=== PATIENT | female | born 2000 | race Caucasian/White ===

== ENCOUNTER 2023-06-12 10:48 | Inpatient (IN) | payer BC ==
[2023-06-12] MEDS ORDERED: Ondansetron 4 MG/2 ML SDV IVPUSH PRN (10:58)
[2023-06-12] MEDS ORDERED: Acetaminophen 325 MG Tab PO PRN (10:58)
[2023-06-12] MEDS ORDERED: Lidocaine 1% 50 ML MDV INJECT PRN (10:58)
[2023-06-12] MEDS ORDERED: Calcium Carbonate 500 MG Tab.Chew PO PRN (10:58)
[2023-06-12] MEDS ORDERED: Nalbuphine 10 MG/0.5 ML Syringe IVPUSH PRN (10:58)
[2023-06-12] MEDS ORDERED: Lactated Ringers 1,000 ML IV SCH (11:00)
[2023-06-12] MEDS ORDERED: Oxytocin/Lactated Ringers 10 UNIT/1,000 ML BAG IV SCH ×2 (11:00)
[2023-06-12 11:30] LABS: HEMATOCRIT 37.7 % (34.1-44.9); HEMOGLOBIN 12.7 gm/dl (11.2-15.7); MEAN CORPUSCULAR HEMOGLOBIN 32.5 pg (25.6-32.2); MEAN CORPUSCULAR HGB CONC 33.7 g/dl (32.2-35.5); MEAN CORPUSCULAR VOLUME 96.4 fl (79.4-94.8); MEAN PLATELET VOLUME 10.3 fl (9.4-12.3); PLATELET COUNT,PLT 299 K/mm3 (182-369); RED BLOOD CELL COUNT 3.91 M/mm3 (3.98-5.22); WHITE BLOOD CELL COUNT,WBC 11.38 K/mm3 (3.98-10.04)
[2023-06-12] MEDS: Misoprostol 25 MCG (1/4 of 100 MCG) Tab VAG PRN ×3 (11:35→20:33)
[2023-06-12] MEDS ORDERED: Bupivacaine/fentaNYL/NS 100 ML Bag EPIDUR PRN (20:05)
[2023-06-12] MEDS ORDERED: fentaNYL 100 MCG/2 ML SDV EPIDUR PRN (20:05)
[2023-06-12] MEDS ORDERED: ePHEDrine 50 MG/ML SDV IVPUSH PRN (20:05)
[2023-06-12] MEDS ORDERED: diphenhydrAMINE 50 MG/ML SDV IVPUSH PRN (20:05)
[2023-06-13] MEDS ORDERED: ceFAZolin 2 GM in Sodium Chloride 0.9% 50 ML IV ONE (09:39)
[2023-06-13] MEDS ORDERED: Citric Acid/Sodium Citrate Solution 30 ML Cup PO ONE (09:39)
[2023-06-13] MEDS ORDERED: Metoclopramide 10 MG/2 ML SDV IVPUSH ONE (09:39)
[2023-06-13] MEDS ORDERED: Azithromycin 500 MG in Sodium Chloride 0.9% 250 ML IV ONE (09:42)
[2023-06-13] MEDS ORDERED: Morphine PF 10 MG/10 ML SDV ONE (09:51)
[2023-06-13] MEDS ORDERED: fentaNYL 100 MCG/2 ML SDV ONE (09:51)
[2023-06-13] MEDS ORDERED: ceFAZolin 2 GM Vial ONE (10:07)
[2023-06-13] MEDS ORDERED: Oxytocin 10 Units/1 ML SDV ONE (10:33)
[2023-06-13] MEDS ORDERED: fentaNYL 100 MCG/2 ML SDV IVPUSH PRN (10:35)
[2023-06-13] MEDS ORDERED: Ondansetron 4 MG/2 ML SDV IVPUSH PRN (10:35)
[2023-06-13] MEDS ORDERED: diphenhydrAMINE 50 MG/ML SDV IVPUSH PRN ×2 (10:35→11:55)
[2023-06-13] MEDS ORDERED: Ketorolac 30 MG/ML SDV ONE (10:42)
[2023-06-13] MEDS ORDERED: Ondansetron 4 MG/2 ML SDV ONE (10:42)
[2023-06-13] MEDS ORDERED: Docusate Sodium 100 MG Cap PO PRN (11:55)
[2023-06-13] MEDS ORDERED: ePHEDrine 50 MG/ML SDV IVPUSH PRN (11:55)
[2023-06-13] MEDS ORDERED: Dextrose 5%-Lactated Ringers 1,000 ML IV SCH (11:55)
[2023-06-13] MEDS ORDERED: Acetaminophen/oxyCODONE 325-5 MG Tab PO PRN ×2 (11:55)
[2023-06-13] MEDS ORDERED: Ondansetron 4 MG/2 ML SDV IV PRN (11:55)
[2023-06-13] MEDS ORDERED: Naloxone 0.4 MG/ML SDV IVPUSH PRN (11:55)
[2023-06-13] MEDS: Ketorolac 30 MG/ML SDV IVPUSH SCH ×2 (15:57→21:58)
[2023-06-14] MEDS: Ketorolac 30 MG/ML SDV IVPUSH SCH (05:54)
[2023-06-14 07:40] LABS: HEMATOCRIT 29.5 % (34.1-44.9); MEAN CORPUSCULAR HEMOGLOBIN 32.3 pg (25.6-32.2); MEAN CORPUSCULAR HGB CONC 32.5 g/dl (32.2-35.5); MEAN CORPUSCULAR VOLUME 99.3 fl (79.4-94.8); MEAN PLATELET VOLUME 10.3 fl (9.4-12.3); PLATELET COUNT,PLT 260 K/mm3 (182-369); RED BLOOD CELL COUNT 2.97 M/mm3 (3.98-5.22); WHITE BLOOD CELL COUNT,WBC 15.56 K/mm3 (3.98-10.04)
[2023-06-14 07:54] LABS: HEMOGLOBIN 9.6 gm/dl (11.2-15.7)
[2023-06-14] MEDS: Ibuprofen 600 MG Tab PO PRN ×2 (13:24→20:50)
[2023-06-15] MEDS ORDERED: Acetaminophen 325 MG Tab PO PRN (00:20)
[2023-06-15] MEDS: Ibuprofen 600 MG Tab PO PRN (08:22)
== END 2023-06-15 11:15 | disposition home or self-care (01) | DRG 540 ==
LOC: JD.OB 10:48 → OBSVTOIN 06-13 10:48 → JD.OB 06-13 11:55
PROVIDERS: ADMIT Obstetrics & Gynecology; ATTEND Obstetrics & Gynecology
PROC: 10D00Z1 Extraction of Products of Conception, Low, Open Approach (ICD-10-PCS; principal; 2023-06-13)
PROC: 10907ZC Drainage of Amniotic Fluid, Therapeutic from Products of Conception, Via Natural or Artificial Opening (ICD-10-PCS; principal; 2023-06-13)
PROC: 3E0P7VZ Introduction of Hormone into Female Reproductive, Via Natural or Artificial Opening (ICD-10-PCS; principal; 2023-06-13)
DX: O48.0 Post-term pregnancy (principal); O32.3XX0 Maternal care for face, brow and chin presentation, not applicable or unspecified; Z37.0 Single live birth; Z3A.41 41 weeks gestation of pregnancy
CPT/HCPCS: 36415; 59025; 85027; 86592; 86850; 86900; 86901; A9270-GY; C1726; J0456; J0690; J1885; J2274; J2405; J2590; J2765; J3010; J7050; J7120; J7121